=== PATIENT | male | born 2000 | race Caucasian/White ===

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

== ENCOUNTER 2020-10-28 15:22 | Emergency (ER) | payer OTHER ==
[~2020-10-28] VITALS: Ht 180.3 cm; Wt 90.7 kg
--- NOTE | 2020-10-28 15:43 | NUR ---
CALLED PT IN LOBBY AND OUTSIDE ER LOBBY; NO RESPONSE.
[2020-10-28 17:18] VITALS: BP 132/68
--- NOTE | 2020-10-28 17:22 | NUR ---
TRIAGED. WAIT AT LOBBY.
--- NOTE | 2020-10-28 17:29 | NUR ---
20 YEAR OLD MALE COMPLAINS OF BUMP ON HEAD X 4 DAYS. PT STATES THAT THESE GROW ON HIS HEAD FREQUENTLY. PT DENIES TRAUMA, DENIES N/V/D. PT AOX4, BREATHING EVEN AND UNLABORED, SKIN WARM AND DRY. BED IN LOWEST POSITION, LOCKED, BED RAIL UPX1. PMH - DENIES ALLERGIES - NKA
--- NOTE | 2020-10-28 17:45 | NUR ---
PT LEFT WITHOUT DISCHARGE INSTRUCTIONS. ERMD MADE AWARE
== END 2020-10-28 17:45 | disposition home or self-care (01) ==
LOC: MED 15:22
DX: L72.3 Sebaceous cyst (principal)
CPT/HCPCS: 99281